=== PATIENT | male | born 1960 | race Caucasian/White ===

== ENCOUNTER → 2019-05-21 00:01 | Outpatient (RCR) | payer SELFPAY | LOC: ONCRAD 05-07 08:20 | PROVIDERS: Visit Provider Specialist | DX: Z51.0 Encounter for antineoplastic radiation therapy (principal); C34.11 Malignant neoplasm of upper lobe, right bronchus or lung; R51 Headache; M54.2 Cervicalgia; M47.812 Spondylosis without myelopathy or radiculopathy, cervical region; J44.9 Chronic obstructive pulmonary disease, unspecified; Z99.81 Dependence on supplemental oxygen; Z79.891 Long term (current) use of opiate analgesic | CPT/HCPCS: 70553; 72040; 77336; 77386 ×8; 78306; A9561; A9579 ==

== ENCOUNTER 2019-06-12 05:39 | Outpatient (RCR) | payer OTHER, SELFPAY ==
--- NOTE | 2019-06-12 11:25 | ONC FU_ITS ---
Dr. Willams follow up note Patient: Brandt Daniels Unit #: [id number]: 1960 Dicatated By: Evi Willams M.D.Date of Visit:Jun 12, 2019 Onc Med Follow-up/Prog Note History of Present Illness: Mr. Brandt Daniels, is a 58-year-old gentleman with history of right lung mass, recently underwent CT-guided biopsy of right upper lobe lung mass and final pathology report showed invasive adenocarcinoma. As per patient he was diagnosed with right upper lobe lung mass for which he was evaluated by Dr. Brewster on 04/26/2018 and because of advanced COPD and poor pulmonary reserve he was not considered a candidate for surgery and was referred to pulmonology for further evaluation and between he was supposed to see cardiothoracic surgeon in [facility] for biopsy and reason unknown to him, eventually on 08/27/[address]-guided biopsy of right upper lobe mass which confirmed the diagnosis of non-small cell lung cancer adenocarcinoma type. And .Molecular profiling of the tumor showed negative for ALK, ROS 1, EGFR, BRAF mutation and PDL [address] PET scan done on 04/21/2018 which showed 2 x 1.8 cm right upper lobe nodule with SUV of 14.1 and a second 9 mm nodule in the lateral right middle lobe has an SUV of 3 consistent with metastatic disease and this. Right hilar node which has SUV of 3. .3, suggestive of metastatic disease Patient has advanced stage COPD, on home oxygen and poor pulmonary reserve, wheelchair-bound History of chronic smoking since age 13, still active CT PET scan done on 09/22/2018 showed the right upper lobe pulmonary nodule has progressed since prior study done on 04/21/2018, now measures 2.7 x 3.2 cm with SUV of 19.7 compared to 2.0 x 1.8 cm with SUV of 14.1 in April 2018 The second nodule previously measured 9 mm in the lateral right middle lobe has SUV of 3 now measures 1.7 cm with SUV of 10.3 A new subcentimeter lesion in the central right middle lobe is FDG positive, indicating new disease. There has been no significant change in the superior right hilar node, still consistent with metastatic disease. MRI scan of the head done on 09/27/2018 showed no evidence of brain metastases but left internal auditory canal enhancing lesion, differential could be acoustic neuroma, meningioma or metastatic disease. Patient being referred to ENT for evaluation Combined chemoradiation therapy was planned initially but after evaluating his scans with Dr. Martinez radiation oncology, there was a concern about pulmonary toxicity with combined chemoradiation so plan was changed to SB RT only to the right upper lobe and right middle lobe lung nodule Which was done on October 10 to 10/18/2018 and October 22 to 10/29/2018 and he was also referred to [place] pulmonology for mediastinal lymph node evaluation/biopsy but visitor information assistant in [place] thought he was a high risk for the procedure so no evaluation was done. At that time radiation decided to do follow-up CT scan of chest which was done on 12/11/2018 and it showed interval decrease in the size of spiculated right upper lobe pulmonary nodule and in the size of spiculated pulmonary nodules in the right middle lobe e.g. good response to SB RT to right upper lobe and right middle lobe pulmonary nodules Stable right hilar FDG avid lymphadenopathy. patient quit smoking for couple of weeks with then start smoking again AGAINST MEDICAL ADVICE. Patient was advised because of his advanced COPD requiring multiple bronchodilator, smoking would be more harmful, patient expressed understanding but still smoking. . Patient went to [facility] for evaluation for clinical trials/second opinion and he was told, no further treatment needed at this time rather observation and follow-up scans in February 2019 .Underwent CT PET scan on 03/09/2019 which showed the right superior hilar node demonstrates progression, now measuring 3.2 x 2.0 with SUV of 13.1, up from 3.4 previously. There is a positive metabolic response in the multiple lung nodules, the right upper lobe nodule that previously measured 2.7 x 3.2 cm with SUV of 19.7, now measures 1.5 cm with SUV of 4.3 The other nodules are now less than 1 cm in size and demonstrate negligible FDG uptake. patient was seen by Dr. Martinez and combined chemoradiation was recommended and planned but after talking to patient's daughter who had concern but pulmonary toxicity due to combined chemoradiation and so other option was to discuss about getting a lymph node biopsy with molecular profiling, patient has transportation problem going to [place], as daughter has no driving license. Finally patient agreed to start treatment with combined chemoradiation so radiation with weekly carboplatin/Taxol was planned but at last minute, patient expressed concern about pulmonary toxicity and reluctant to take chemotherapy but agreed to proceed with radiation alone. Case was discussed with Dr. Martinez and was treated with radiation alone because of concern but pulmonary toxicity from combined chemoradiation in already compromised pulmonary status and patient on home oxygen.Which was started on 03/28/2019 through 05/28/2019 During radiation therapy patient started having headaches and generalized bony pains for which she underwent bone scan on 05/21/2019 which showed no evidence of metastatic disease but degenerative type arthritis involving bilateral first carpometacarpal joints and cervical spondylosis. MRI head was also done on 05/09/2019 which showed no evidence of metastatic disease Came for follow-up., Denies any specific complaint except persistent off-and-on headaches and bilateral shoulder pain back pain, pain in his wrists, not being controlled with Tylenol hydrocodone helps some. Now waiting for pain clinic evaluation in [place]. And requesting pain medicine to to cover till being evaluated in the clinic. Patient has completed radiation therapy to his mediastinal lymph node area. Medications: buPROPion HCl 1 Tablet (of 75 mg) Oral b.i.d., Combivent Respimat Aerosol, solution Inhalation, Gabapentin 3 Capsule (of 300 mg) Oral at bedtime, KlonoPIN 1 (0.5 mg) Tablet Oral t.i.d., Montelukast Sodium 1 Tablet (of 10 mg) Tablet Oral daily, ProAir HFA 1 puff(s) (of 108 (90 base) mcg/act) Aerosol, solution Inhalation PRN, Spiriva Respimat Aerosol, solution Inhalation, Symbicort 2 puff(s) (of 160-4.5 mcg/act) Aerosol Inhalation Allergies: eggs Review of Systems: Constitutional - No fevers, chills, night sweats, excessive fatigue or weight loss, ENMT - No sinus congestion/drainage. No mouth sores. No sore throat or difficulty swallowing, Hematologic/Lymphatic - No abnormal bruising or bleeding, Respiratory - He continues to be short of breath and wears oxygen continuously. He continues to smoke some, Cardiovascular - No anginal chest pain, palpitations or orthopnea, Gastrointestinal - No nausea, vomiting, diarrhea, GI bleeding, or constipation. No change in bowel habits, no heartburn or early satiety, Genitourinary (M) - No hematuria, dysuria, increased frequency, urgency, hesitancy or incontinence, Musculoskeletal - Pt reports significant pain, and states [facility] in [place], Integumentary - No chronic rashes, inflammation, ulcerations or skin changes, Neurologic - No headache or dizziness. Pt reports some numbness and tingling in left hand, Psychiatric - Positive for anxiety. No depression. No insomnia. Vital Signs: Vitals are not available for this patient. Performance Status: 2 - Ambulatory/capable of all self-care, unable to perform any work activities. Up and about more than 50% of waking hours. (ECOG) Physical Examination: ENMT - No oral exudates, ulcers, masses, thrush or mucositis. Oropharynx clear. Tongue normal, Respiratory -poor air entry, mild wheezing bilaterally, Cardiovascular - Regular rate and rhythm of heart, Abdomen - Non-tender, non-distended, Good bowel sounds. No guarding or rebound tenderness. No pulsatile masses, Extremities - no edema. Lab/Imaging: Test performed on Mar 28, 2019 09:02 Sodium 139 mmol/L Potassium 4.2 mmol/L Chloride 100 mmol/L CO2 26 mmol/L Anion Gap 17.2 BUN 15 mg/dL Creatinine 0.6 mg/dL Cr Clearance (Est) 124.5100 mL/min eGFR 137.9 mL/min Glucose 231 mg/dl Calcium 9.8 mg/dL Protein, Total 7.4 g/dL Albumin 5.2 g/dL Globulin 2.2 gm/dL Bilirubin, Total 0.3 mg/dL ALT (SGPT) 9 U/L AST (SGOT) 16 U/L Alkaline Phosphatase 100 U/L WBC 6.0 10 3/uL RBC 4.36 10 6/uL HGB 13.3 g/dL HCT 40.3 % MCV 92.4 fl MCH 30.5 pg MCHC 33.0 g/dl RDW 13.2 % Platelet Count 180 10 3/cmm MPV 10.9 fl Neutrophils 5.7 10 3/uL Lymphocytes 0.2 10 3/uL Monocytes 0.1 10 3/uL Eosinophils 0.0 10 3/uL Basophils 0.0 10 3/uL Neutrophil % 95.1 % Lymphocyte % 3.7 % Monocyte % 1.0 % Eosinophil % 0.0 % Basophils % 0.0 % Impression: Invasive adenocarcinoma of right upper lobe of lung per CT-guided biopsy done on 08/27/2018 Immunohistochemistry showed positive for CKAE1,/AE3, malignant cell stained diffusely and strongly for TTF-1 and showed rare positivity for p63 Negative for synaptophysin and chromogranin. CT PET scan done on 04/21/2018 showed 2 x 1.8 cm right upper lobe nodule with SUV of 14.1 A second 9 mm nodule in the lateral right middle lobe has an SUV of 3.0 consistent with metastatic disease Superior right hilar node has an SUV of 3.3, suggestive of metastatic disease CT PET scan done on 09/22/2018 showed right upper lobe pulmonary nodule has progressed since prior study done in April 2018 now measures 2.7 x 3.2 cm with SUV of 19.7 compared to 2 x 1.8 cm SUV of 14.1 in April 2018 Second nodule previously measured 9 mm in the lateral right middle lobe had an SUV of 3 now measures 1.7 cm with SUV of 10.3 A new subcentimeter lesion in the central right middle lobe is FDG positive, indicating new disease. There has been no significant change in superior right hilar node still consistent with metastatic disease Combined chemoradiation therapy was planned but after reviewing his scans with radiation oncology it was decided risk of permanent toxicity with combined chemoradiation was high thus SB RT only to the right upper lobe and right middle lobe nodule was given. And concern was with mediastinal lymphadenopathy for which she was referred to visitor information assistant in [place] but considering his pulmonary status e.g. advanced stage COPD, he was considered high risk for the procedure so no mediastinal evaluation was done. Rather follow-up was recommended patient underwent follow-up CT scan of chest on 12/11/2018 which showed interval decrease in size of spiculated right upper lobe pulmonary nodule and right middle lobe pulmonary not. Stable right hilar lymphadenopathy. Advanced chronic emphysematous changes MRI scan of the head done on 09/27/2018 showed no evidence of metastatic disease but left internal auditory canal enhancing lesion, differential including acoustic neuroma, meningioma or metastatic disease, now being referred to ENT for evaluation. Advanced stage COPD, on home oxygen Long-standing history of smoking since age 13, still active Plan: Discussed with patient regarding further plan including observation versus systemic chemotherapy with carboplatin/Alimta every 3 weeks ???4 followed by durvalumab every 2 weeks ???12 months or maintenance immunotherapy with durvalumab. Patient has stage IIIB disease e.g. T4 (primary in right upper lobe and nodule in right middle lobe status post SB RT) and mediastinal lymph node involvement N2. Ideally in patient with stage IIIb disease, standard of care is combined chemoradiation followed by maintenance therapy with durvalumab, but patient did not take chemotherapy due to underlying advanced stage pulmonary disease so in his case definitive radiation therapy alone was given and plan was to give him systemic chemotherapy in adjuvant fashion e.g. carboplatin/Alimta every 3 weeks ???4 and followed by maintenance therapy with immunotherapy.All the side effect possible benefits associated with chemotherapy and immunotherapy were discussed in detail further teaching will be done by chemotherapy nurse Patient is declining immunotherapy due to later side effect and toxicity, may consider chemotherapy but wants to discuss with his family and friends and patient was given literature on carboplatin and Alimta and patient return to clinic in 1 week with CBC CMP and at that time if he agreed then will obtain approval from his insurance and plan. Signed By: Evi Willams M.D. <<Signature on File>>
== END 2019-06-21 23:59 | disposition home or self-care (01) ==
LOC: ONCRAD 05:39
PROVIDERS: Visit Provider Internal Medicine Hematology & Oncology
DX: Z51.0 Encounter for antineoplastic radiation therapy (principal); C34.11 Malignant neoplasm of upper lobe, right bronchus or lung; Z45.2 Encounter for adjustment and management of vascular access device; J44.9 Chronic obstructive pulmonary disease, unspecified; C77.1 Secondary and unspecified malignant neoplasm of intrathoracic lymph nodes; F17.210 Nicotine dependence, cigarettes, uncomplicated; M19.042 Primary osteoarthritis, left hand; M19.041 Primary osteoarthritis, right hand; M47.892 Other spondylosis, cervical region; Z99.81 Dependence on supplemental oxygen
CPT/HCPCS: 77014; 77336; 77386; 96523; 99214

== ENCOUNTER 2019-07-04 05:55 | Outpatient (RCR) | payer OTHER, SELFPAY ==
[2019-07-04 09:42] LABS: Basophils % 0.5 %; Eosinophils # 0.1 10^3/uL (0.0-0.8); Eosinophils % 2.1 %; Hematocrit 36.3 % (42.0-52.0); Hemoglobin 12.1 g/dL (11.7-16.6); Lymphocytes # 0.6 10^3/uL (0.8-4.8); Lymphocytes % 9.5 %; Mean Corpuscular HGB Conc 33.3 g/dL (30.0-36.0); Mean Corpuscular Hemoglobin 30.6 pg (28.0-34.0); Mean Corpuscular Volume 91.7 fL (80-94); Mean Platelet Volume 10.1 fL (7.4-10.4); Monocytes # 0.5 10^3/uL (0.2-0.9); Monocytes % 8.7 %; Neutrophils # 4.9 10^3/uL (1.8-7.7); Neutrophils % 78.9 %; Nucleated Red Blood Cells % 0 %; Platelet Count 187 10^3/cmm (130-400); Red Blood Count 3.96 10^6/uL (4.1-5.3); Red Cell Distribution Width 13.2 % (12.1-15.1); White Blood Count 6.2 10^3/uL (4.0-10.0)
[2019-07-04 09:55] LABS: Alanine Aminotransferase 11 U/L (0-41); Albumin Level 4.2 g/dL (3.5-5.2); Alkaline Phosphatase 69 IU/L (40-130); Anion Gap 12.2 (5-19); Aspartate Amino Transferase 12 U/L (0-40); Blood Urea Nitrogen 8 mg/dL (8-23); Calcium 9.5 mg/dL (8.5-10.5); Carbon Dioxide 29 mmol/L (22-29); Chloride 96 mmol/L (98-107); Globulin 2.8 g/dL (1.3-4.6); Glomerular Filtration Rate 169.6 mL/min (90-130); Glucose 144 mg/dL (65-115); Potassium 4.2 mmol/L (3.5-5.1); Sodium 133 mmol/L (136-145); Total Bilirubin 0.3 mg/dL (0.15-1.2)
--- NOTE | 2019-07-04 12:59 | ONC FU_ITS ---
Dr. Willams follow up note Patient: Brandt Daniels Unit #: [id number]: 1960 Dicatated By: Evi Willams M.D.Date of Visit:Jul 04, 2019 Onc Med Follow-up/Prog Note History of Present Illness: Mr. Brandt Daniels, is a 58-year-old gentleman with history of right lung mass, recently underwent CT-guided biopsy of right upper lobe lung mass and final pathology report showed invasive adenocarcinoma. As per patient he was diagnosed with right upper lobe lung mass for which he was evaluated by Dr. Brewster on 04/26/2018 and because of advanced COPD and poor pulmonary reserve he was not considered a candidate for surgery and was referred to pulmonology for further evaluation and between he was supposed to see cardiothoracic surgeon in [facility] for biopsy and reason unknown to him, eventually on 08/27/[address]-guided biopsy of right upper lobe mass which confirmed the diagnosis of non-small cell lung cancer adenocarcinoma type. And .Molecular profiling of the tumor showed negative for ALK, ROS 1, EGFR, BRAF mutation and PDL [address] PET scan done on 04/21/2018 which showed 2 x 1.8 cm right upper lobe nodule with SUV of 14.1 and a second 9 mm nodule in the lateral right middle lobe has an SUV of 3 consistent with metastatic disease and this. Right hilar node which has SUV of 3. .3, suggestive of metastatic disease Patient has advanced stage COPD, on home oxygen and poor pulmonary reserve, wheelchair-bound History of chronic smoking since age 13, still active CT PET scan done on 09/22/2018 showed the right upper lobe pulmonary nodule has progressed since prior study done on 04/21/2018, now measures 2.7 x 3.2 cm with SUV of 19.7 compared to 2.0 x 1.8 cm with SUV of 14.1 in April 2018 The second nodule previously measured 9 mm in the lateral right middle lobe has SUV of 3 now measures 1.7 cm with SUV of 10.3 A new subcentimeter lesion in the central right middle lobe is FDG positive, indicating new disease. There has been no significant change in the superior right hilar node, still consistent with metastatic disease. MRI scan of the head done on 09/27/2018 showed no evidence of brain metastases but left internal auditory canal enhancing lesion, differential could be acoustic neuroma, meningioma or metastatic disease. Patient being referred to ENT for evaluation Combined chemoradiation therapy was planned initially but after evaluating his scans with Dr. Martinez radiation oncology, there was a concern about pulmonary toxicity with combined chemoradiation so plan was changed to SB RT only to the right upper lobe and right middle lobe lung nodule Which was done on October 10 to 10/18/2018 and October 22 to 10/29/2018 and he was also referred to [place] pulmonology for mediastinal lymph node evaluation/biopsy but [facility] in [place] thought he was a high risk for the procedure so no evaluation was done. At that time radiation decided to do follow-up CT scan of chest which was done on 12/11/2018 and it showed interval decrease in the size of spiculated right upper lobe pulmonary nodule and in the size of spiculated pulmonary nodules in the right middle lobe e.g. good response to SB RT to right upper lobe and right middle lobe pulmonary nodules Stable right hilar FDG avid lymphadenopathy. patient quit smoking for couple of weeks with then start smoking again AGAINST MEDICAL ADVICE. Patient was advised because of his advanced COPD requiring multiple bronchodilator, smoking would be more harmful, patient expressed understanding but still smoking. . Patient went to [facility] for evaluation for clinical trials/second opinion and he was told, no further treatment needed at this time rather observation and follow-up scans in February 2019 .Underwent CT PET scan on 03/09/2019 which showed the right superior hilar node demonstrates progression, now measuring 3.2 x 2.0 with SUV of 13.1, up from 3.4 previously. There is a positive metabolic response in the multiple lung nodules, the right upper lobe nodule that previously measured 2.7 x 3.2 cm with SUV of 19.7, now measures 1.5 cm with SUV of 4.3 The other nodules are now less than 1 cm in size and demonstrate negligible FDG uptake. patient was seen by Dr. Martinez and combined chemoradiation was recommended and planned but after talking to patient's daughter who had concern but pulmonary toxicity due to combined chemoradiation and so other option was to discuss about getting a lymph node biopsy with molecular profiling, patient has transportation problem going to [place], as daughter has no driving license. Finally patient agreed to start treatment with combined chemoradiation so radiation with weekly carboplatin/Taxol was planned but at last minute, patient expressed concern about pulmonary toxicity and reluctant to take chemotherapy but agreed to proceed with radiation alone. Case was discussed with Dr. Martinez and was treated with radiation alone because of concern but pulmonary toxicity from combined chemoradiation in already compromised pulmonary status and patient on home oxygen.Which was started on 03/28/2019 through 05/28/2019 During radiation therapy patient started having headaches and generalized bony pains for which she underwent bone scan on 05/21/2019 which showed no evidence of metastatic disease but degenerative type arthritis involving bilateral first carpometacarpal joints and cervical spondylosis. MRI head was also done on 05/09/2019 which showed no evidence of metastatic disease Consolidation/adjuvant chemotherapy was considered after definitive radiation to the lung and also discuss about role of maintenance therapy with immunotherapy, patient did some research and talk to his family and decided against medical advise and would not consider chemotherapy or immunotherapy rather using alternative therapy with herbs . And his chronic pain is being managed by pain clinic. Came for follow-up, denies any specific complaints, no fever or chills, no nausea or vomiting but had episode of shingles involving right upper abdominal and flank area, patient was treated with acyclovir by his PMD, now complaining of mild anxiety as pain clinic is monitoring his medications. Patient said he did some research on net, and talked to his family and has decided not to consider any chemotherapy or immunotherapy knowing the risk versus benefits rather prefer observation as he is taking alternative therapy in form of various herbs. Medications: buPROPion HCl 1 Tablet (of 75 mg) Oral b.i.d., Combivent Respimat Aerosol, solution Inhalation, Gabapentin 3 Capsule (of 300 mg) Oral at bedtime, Montelukast Sodium 1 Tablet (of 10 mg) Tablet Oral daily, ProAir HFA 1 puff(s) (of 108 (90 base) mcg/act) Aerosol, solution Inhalation PRN, Spiriva Respimat Aerosol, solution Inhalation, Symbicort 2 puff(s) (of 160-4.5 mcg/act) Aerosol Inhalation Allergies: eggs Review of Systems: Constitutional - No fevers, chills, night sweats, excessive fatigue or weight loss, ENMT - No sinus congestion/drainage. No mouth sores. No sore throat or difficulty swallowing, Hematologic/Lymphatic - No abnormal bruising or bleeding, Respiratory - He continues to be short of breath and wears oxygen continuously. He continues to smoke some, Cardiovascular - No anginal chest pain, palpitations or orthopnea, Gastrointestinal - No nausea, vomiting, diarrhea, GI bleeding, or constipation. No change in bowel habits, no heartburn or early satiety, Genitourinary (M) - No hematuria, dysuria, increased frequency, urgency, hesitancy or incontinence, Musculoskeletal - Pt reports significant pain, stating that he is currently seeing a pain clinic physician, Integumentary - Pt has shingles on right lower chest/upper abdomen, Neurologic - No headache or dizziness, Psychiatric - Positive for anxiety, Pt states Pain Management D/c'd his anxiety medication. No depression. No insomnia. Vital Signs: Performed on Jul 04, 2019 10:33 Height - 68.00 in Weight - 150.0 lbs (LOW) BSA - 1.81 sq.m BMI - 22.81 Temperature - 97.9 F (LOW) Pulse - 103 /min (HIGH) Respiration - 20 /min BP - 108/69 mm(hg) O2 Sat - 100 % Pain - 10 Performance Status: 2 - Ambulatory/capable of all self-care, unable to perform any work activities. Up and about more than 50% of waking hours. (ECOG) Physical Examination: ENMT - No oral exudates, ulcers, masses, thrush or mucositis. Oropharynx clear. Tongue normal, Respiratory - Lungs are clear to auscultation without rhonchi or wheezing, Cardiovascular - Regular rate and rhythm of heart, Abdomen - Non-tender, non-distended, Good bowel sounds. No guarding or rebound tenderness. No pulsatile masses, Extremities - no edema. Lab/Imaging: Test performed on Mar 28, 2019 09:02 Sodium 139 mmol/L Potassium 4.2 mmol/L Chloride 100 mmol/L CO2 26 mmol/L Anion Gap 17.2 BUN 15 mg/dL Creatinine 0.6 mg/dL Cr Clearance (Est) 124.5100 mL/min eGFR 137.9 mL/min Glucose 231 mg/dl Calcium 9.8 mg/dL Protein, Total 7.4 g/dL Albumin 5.2 g/dL Globulin 2.2 gm/dL Bilirubin, Total 0.3 mg/dL ALT (SGPT) 9 U/L AST (SGOT) 16 U/L Alkaline Phosphatase 100 U/L WBC 6.0 10 3/uL RBC 4.36 10 6/uL HGB 13.3 g/dL HCT 40.3 % MCV 92.4 fl MCH 30.5 pg MCHC 33.0 g/dl RDW 13.2 % Platelet Count 180 10 3/cmm MPV 10.9 fl Neutrophils 5.7 10 3/uL Lymphocytes 0.2 10 3/uL Monocytes 0.1 10 3/uL Eosinophils 0.0 10 3/uL Basophils 0.0 10 3/uL Neutrophil % 95.1 % Lymphocyte % 3.7 % Monocyte % 1.0 % Eosinophil % 0.0 % Basophils % 0.0 % Impression: Invasive adenocarcinoma of right upper lobe of lung per CT-guided biopsy done on 08/27/2018 Immunohistochemistry showed positive for CKAE1,/AE3, malignant cell stained diffusely and strongly for TTF-1 and showed rare positivity for p63 Negative for synaptophysin and chromogranin. CT PET scan done on 04/21/2018 showed 2 x 1.8 cm right upper lobe nodule with SUV of 14.1 A second 9 mm nodule in the lateral right middle lobe has an SUV of 3.0 consistent with metastatic disease Superior right hilar node has an SUV of 3.3, suggestive of metastatic disease CT PET scan done on 09/22/2018 showed right upper lobe pulmonary nodule has progressed since prior study done in April 2018 now measures 2.7 x 3.2 cm with SUV of 19.7 compared to 2 x 1.8 cm SUV of 14.1 in April 2018 Second nodule previously measured 9 mm in the lateral right middle lobe had an SUV of 3 now measures 1.7 cm with SUV of 10.3 A new subcentimeter lesion in the central right middle lobe is FDG positive, indicating new disease. There has been no significant change in superior right hilar node still consistent with metastatic disease Combined chemoradiation therapy was planned but after reviewing his scans with radiation oncology it was decided risk of permanent toxicity with combined chemoradiation was high thus SB RT only to the right upper lobe and right middle lobe nodule was given. And concern was with mediastinal lymphadenopathy for which she was referred to [facility] in [place] but considering his pulmonary status e.g. advanced stage COPD, he was considered high risk for the procedure so no mediastinal evaluation was done. Rather follow-up was recommended patient underwent follow-up CT scan of chest on 12/11/2018 which showed interval decrease in size of spiculated right upper lobe pulmonary nodule and right middle lobe pulmonary not. Stable right hilar lymphadenopathy. Advanced chronic emphysematous changes MRI scan of the head done on 09/27/2018 showed no evidence of metastatic disease but left internal auditory canal enhancing lesion, differential including acoustic neuroma, meningioma or metastatic disease, now being referred to ENT for evaluation. Advanced stage COPD, on home oxygen Long-standing history of smoking since age 13, still active Plan: Discussed with patient regarding his labs white blood count 6.2 hemoglobin 12.1 crit 36.3 platelets 187,000 CMP within normal limits except sodium 133 Clinically, patient is doing well with no signs symptoms suggestive of disease progression. Patient was recommended adjuvant/consolidation therapy followed by immunotherapy as patient was not a candidate for surgery because of poor pulmonary reserve and underwent definitive radiation therapy to the lung for stage IIIB disease. Patient declined therapy rather prefer observation, no new risk versus benefits, patient was offered second opinion or referred to tertiary care center but patient declined. Now using herbs and awaiting for follow-up CT scan of chest ordered by radiation oncology in July 2019. If that shows disease progression then he may consider treatment otherwise prefer observation. We'll continue port maintenance on monthly basis and then return to clinic in 2 months with CBC CMP. Signed By: Evi Willams M.D. <<Signature on File>>
== END 2019-07-20 23:59 | disposition home or self-care (01) ==
LOC: ONCMED 05:55
PROVIDERS: Visit Provider Internal Medicine Hematology & Oncology
DX: C34.11 Malignant neoplasm of upper lobe, right bronchus or lung (principal); C78.02 Secondary malignant neoplasm of left lung; H61.92 Disorder of left external ear, unspecified; J44.9 Chronic obstructive pulmonary disease, unspecified; F17.210 Nicotine dependence, cigarettes, uncomplicated; M19.042 Primary osteoarthritis, left hand; M19.041 Primary osteoarthritis, right hand; M47.892 Other spondylosis, cervical region; G89.29 Other chronic pain; Z79.51 Long term (current) use of inhaled steroids; Z99.81 Dependence on supplemental oxygen; Z99.3 Dependence on wheelchair; Z92.3 Personal history of irradiation
CPT/HCPCS: 36591; 80053; 85025; 99214

== ENCOUNTER 2019-08-01 09:14 | Outpatient (RCR) | payer OTHER, SELFPAY ==
--- NOTE | 2019-08-01 09:20 | CT_ITS ---
WS: [id number] CT CHEST TECHNIQUE: Contrast enhanced CT of the chest with coronal and sagittal reformatted images. CLINICAL INFORMATION: LUNG CANCER COMPARISON: CT chest December 11, 2018. PET/CT March 09, 2019 DLP: 474.[address] scans at [facility] use at least one of these dose optimization techniques: automat ed exposure control; mA and/or kV adjustment per patient size (includes targeted exams where dose is matched to clinical indication); or iterative reconstruction. FINDINGS: Moderate chronic emphysematous changes. Spiculated right upper lobe pulmonary nodule decreased in siz e since the prior chest CT and PET/CT. Today this measures approximately 1.4 x 1.1 cm with increase i n surrounding fibrosis. Previously described spiculated pulmonary nodule in the right middle lobe is also decreased in size a nd only measures approximately 5 mm today with some surrounding fibrosis. Additional tiny subcentimeter nodule right middle lobe laterally is unchanged. Previously described F DG avid right hilar lymph nodes have decreased in size slightly. No new lymphadenopathy. Aortic calcification. Normal caliber thoracic aorta. Proximal main pulmonary arteries are normal. Nor mal endobronchial tree. Adrenal glands are normal. Normal caliber upper abdominal aorta. CT/CT chest w con* [id number] IMPRESSION: 1. Spiculated right upper lobe nodule measuring 1.4 x 1.1 cm has decreased in size since the prior PET/CT and November [address] today measuring 1.4 x 1.1 CM . Interval increase in the surrounding fibrosis consistent with treatment-relat ed changes. 2. Right middle lobe nodule has nearly resolved today only measuring 5 mm. 3. FDG avid right hilar lymphadenopathy has also improved. 4. Tiny right middle lobe noncalcified pulmonary nodule is unchanged. 5. Chronic emphysematous changes.
[2019-08-01] MEDS: iohexol 300 mg/mL 100 mL Btl IV (09:45)
== END 2019-08-20 23:59 | disposition home or self-care (01) ==
LOC: ONCMED 09:14
PROVIDERS: Visit Provider Internal Medicine Hematology & Oncology
DX: C34.11 Malignant neoplasm of upper lobe, right bronchus or lung (principal); C78.02 Secondary malignant neoplasm of left lung; C77.1 Secondary and unspecified malignant neoplasm of intrathoracic lymph nodes
CPT/HCPCS: 71260; 96523

== ENCOUNTER 2019-09-05 07:25 | Outpatient (RCR) | payer OTHER, SELFPAY ==
[2019-09-05 11:09] LABS: Basophils % 0.3 %; Eosinophils # 0.2 10^3/uL (0.0-0.8); Hematocrit 38.3 % (42.0-52.0); Hemoglobin 12.8 g/dL (11.7-16.6); Lymphocytes # 0.7 10^3/uL (0.8-4.8); Lymphocytes % 8.8 %; Mean Corpuscular HGB Conc 33.4 g/dL (30.0-36.0); Mean Corpuscular Hemoglobin 31.2 pg (28.0-34.0); Mean Corpuscular Volume 93.4 fL (80-94); Mean Platelet Volume 10.8 fL (7.4-10.4); Monocytes # 0.7 10^3/uL (0.2-0.9); Monocytes % 9.5 %; Neutrophils # 6.1 10^3/uL (1.8-7.7); Neutrophils % 78.1 %; Nucleated Red Blood Cells % 0 %; Platelet Count 175 10^3/cmm (130-400); Red Cell Distribution Width 13.1 % (12.1-15.1); White Blood Count 7.8 10^3/uL (4.0-10.0)
[2019-09-05 11:36] LABS: Alanine Aminotransferase 10 U/L (0-41); Albumin Level 4.6 g/dL (3.5-5.2); Alkaline Phosphatase 81 IU/L (40-130); Anion Gap 14.3 (5-19); Aspartate Amino Transferase 12 U/L (0-40); Blood Urea Nitrogen 5 mg/dL (8-23); Carbon Dioxide 31 mmol/L (22-29); Chloride 94 mmol/L (98-107); Globulin 2.9 g/dL (1.3-4.6); Glomerular Filtration Rate 219.4 mL/min (90-130); Glucose 111 mg/dL (65-115); Osmolality Calculated 276 mOsm/kg (285-295); Potassium 4.3 mmol/L (3.5-5.1); Sodium 135 mmol/L (136-145); Total Bilirubin 0.4 mg/dL (0.15-1.2); Total Protein 7.5 g/dL (6.6-8.7)
--- NOTE | 2019-09-05 11:57 | ONC FU_ITS ---
Dr. Willams follow up note Patient: Brandt Daniels Unit #: [id number]: 1960 Dicatated By: Evi Willams M.D.Date of Visit:Sep 05, 2019 Onc Med Follow-up/Prog Note History of Present Illness: Mr. Brandt Daniels, is a 59 -year-old gentleman with history of right lung mass, recently underwent CT-guided biopsy of right upper lobe lung mass and final pathology report showed invasive adenocarcinoma. As per patient he was diagnosed with right upper lobe lung mass for which he was evaluated by Dr. Brewster on 04/26/2018 and because of advanced COPD and poor pulmonary reserve he was not considered a candidate for surgery and was referred to pulmonology for further evaluation and between he was supposed to see cardiothoracic surgeon in [facility] for biopsy and reason unknown to him, eventually on 08/27/[address]-guided biopsy of right upper lobe mass which confirmed the diagnosis of non-small cell lung cancer adenocarcinoma type. And .Molecular profiling of the tumor showed negative for ALK, ROS 1, EGFR, BRAF mutation and PDL [address] PET scan done on 04/21/2018 which showed 2 x 1.8 cm right upper lobe nodule with SUV of 14.1 and a second 9 mm nodule in the lateral right middle lobe has an SUV of 3 consistent with metastatic disease and this. Right hilar node which has SUV of 3. .3, suggestive of metastatic disease Patient has advanced stage COPD, on home oxygen and poor pulmonary reserve, wheelchair-bound History of chronic smoking since age 13, still active CT PET scan done on 09/22/2018 showed the right upper lobe pulmonary nodule has progressed since prior study done on 04/21/2018, now measures 2.7 x 3.2 cm with SUV of 19.7 compared to 2.0 x 1.8 cm with SUV of 14.1 in April 2018 The second nodule previously measured 9 mm in the lateral right middle lobe has SUV of 3 now measures 1.7 cm with SUV of 10.3 A new subcentimeter lesion in the central right middle lobe is FDG positive, indicating new disease. There has been no significant change in the superior right hilar node, still consistent with metastatic disease. MRI scan of the head done on 09/27/2018 showed no evidence of brain metastases but left internal auditory canal enhancing lesion, differential could be acoustic neuroma, meningioma or metastatic disease. Patient being referred to ENT for evaluation Combined chemoradiation therapy was planned initially but after evaluating his scans with Dr. Martinez radiation oncology, there was a concern about pulmonary toxicity with combined chemoradiation so plan was changed to SB RT only to the right upper lobe and right middle lobe lung nodule Which was done on October 10 to 10/18/2018 and October 22 to 10/29/2018 and he was also referred to [place] pulmonology for mediastinal lymph node evaluation/biopsy but shop teacher in [place] thought he was a high risk for the procedure so no evaluation was done. At that time radiation decided to do follow-up CT scan of chest which was done on 12/11/2018 and it showed interval decrease in the size of spiculated right upper lobe pulmonary nodule and in the size of spiculated pulmonary nodules in the right middle lobe e.g. good response to SB RT to right upper lobe and right middle lobe pulmonary nodules Stable right hilar FDG avid lymphadenopathy. patient quit smoking for couple of weeks with then start smoking again AGAINST MEDICAL ADVICE. Patient was advised because of his advanced COPD requiring multiple bronchodilator, smoking would be more harmful, patient expressed understanding but still smoking. . Patient went to [facility] for evaluation for clinical trials/second opinion and he was told, no further treatment needed at this time rather observation and follow-up scans in February 2019 .Underwent CT PET scan on 03/09/2019 which showed the right superior hilar node demonstrates progression, now measuring 3.2 x 2.0 with SUV of 13.1, up from 3.4 previously. There is a positive metabolic response in the multiple lung nodules, the right upper lobe nodule that previously measured 2.7 x 3.2 cm with SUV of 19.7, now measures 1.5 cm with SUV of 4.3 The other nodules are now less than 1 cm in size and demonstrate negligible FDG uptake. patient was seen by Dr. Martinez and combined chemoradiation was recommended and planned but after talking to patient's daughter who had concern but pulmonary toxicity due to combined chemoradiation and so other option was to discuss about getting a lymph node biopsy with molecular profiling, patient has transportation problem going to [place], as daughter has no driving license. Finally patient agreed to start treatment with combined chemoradiation so radiation with weekly carboplatin/Taxol was planned but at last minute, patient expressed concern about pulmonary toxicity and reluctant to take chemotherapy but agreed to proceed with radiation alone. Case was discussed with Dr. Martinez and was treated with radiation alone because of concern but pulmonary toxicity from combined chemoradiation in already compromised pulmonary status and patient on home oxygen.Which was started on 03/28/2019 through 05/28/2019 During radiation therapy patient started having headaches and generalized bony pains for which she underwent bone scan on 05/21/2019 which showed no evidence of metastatic disease but degenerative type arthritis involving bilateral first carpometacarpal joints and cervical spondylosis. MRI head was also done on 05/09/2019 which showed no evidence of metastatic disease Consolidation/adjuvant chemotherapy was considered after definitive radiation to the lung and also discuss about role of maintenance therapy with immunotherapy, patient did some research and talk to his family and decided against medical advise and would not consider chemotherapy or immunotherapy rather using alternative therapy with herbs . And his chronic pain is being managed by pain clinic. Follow-up CT scan of chest done on 08/01/2019 showed a spiculated right upper lobe nodule measuring 1.4 x 1.1 cm has decreased in size since prior CT PET scan and now measuring 1.4 x 1.1 cm. Interval increase in surrounding fibrosis consistent with treatment related changes. Right middle lobe nodule has nearly resolved only measured 5 mm FDG avid right hilar lymphadenopathy has also improved. Tiny right middle lobe noncalcified pulmonary nodule is unchanged. Came for follow-up, denies any specific complaints, no fever or chills, no nausea or vomiting no diarrhea constipation, on home oxygen, still smoking. No hemoptysis or hematemesis. And also taking HERBS and alternative treatment for lung cancer. Medications: buPROPion HCl 1 Tablet (of 75 mg) Oral b.i.d., Combivent Respimat Aerosol, solution Inhalation, Gabapentin 3 Capsule (of 300 mg) Oral at bedtime, Montelukast Sodium 1 Tablet (of 10 mg) Tablet Oral daily, ProAir HFA 1 puff(s) (of 108 (90 base) mcg/act) Aerosol, solution Inhalation PRN, Spiriva Respimat Aerosol, solution Inhalation, Symbicort 2 puff(s) (of 160-4.5 mcg/act) Aerosol Inhalation Allergies: eggs Review of Systems: Constitutional - No fevers, chills, night sweats, excessive fatigue or weight loss, ENMT - No sinus congestion/drainage. No mouth sores. No sore throat or difficulty swallowing, Hematologic/Lymphatic - No abnormal bruising or bleeding, Respiratory - He continues to be short of breath and wears oxygen continuously. He continues to smoke some, Cardiovascular - No anginal chest pain, palpitations or orthopnea, Gastrointestinal - No nausea, vomiting, diarrhea, GI bleeding, or constipation. No change in bowel habits, no heartburn or early satiety, Genitourinary (M) - No hematuria, dysuria, increased frequency, urgency, hesitancy or incontinence, Musculoskeletal - Pt reports significant pain, stating that he is currently seeing a pain clinic physician, Integumentary - , Neurologic - No headache or dizziness, Psychiatric - Positive for anxiety (Pt is tearful today). No depression. No insomnia. Vital Signs: Performed on Sep 05, 2019 10:53 Height - 68.00 in Temperature - 98.9 F (HIGH) Pulse - 124 /min (HIGH) Respiration - 22 /min BP - 120/77 mm(hg) O2 Sat - 97 % Pain - 0 Performance Status: 2 - Ambulatory/capable of all self-care, unable to perform any work activities. Up and about more than 50% of waking hours. (ECOG) Physical Examination: ENMT - no mouth sores, Respiratory - Lungs poor air entry with mild wheezing, Cardiovascular - regular rate and rhythm, Abdomen - nontender, bowel sounds present, Extremities - no edema or rash. Lab/Imaging: Test performed on Jul 04, 2019 09:25 Sodium 133 mmol/L Potassium 4.2 mmol/L Chloride 96 mmol/L CO2 29 mmol/L Anion Gap 12.2 BUN 8 mg/dL Creatinine 0.5 mg/dL Cr Clearance (Est) 147.5700 mL/min eGFR 169.6 mL/min Glucose 144 mg/dL Calcium 9.5 mg/dL Protein, Total 7.0 g/dL Albumin 4.2 g/dL Globulin 2.8 g/dL Bilirubin, Total 0.3 mg/dL ALT (SGPT) 11 U/L AST (SGOT) 12 U/L Alkaline Phosphatase 69 IU/L WBC 6.2 10 3/uL RBC 3.96 10 6/uL HGB 12.1 g/dL HCT 36.3 % MCV 91.7 fL MCH 30.6 pg MCHC 33.3 g/dL RDW 13.2 % Platelet Count 187 10 3/cmm MPV 10.1 fL Neutrophils 4.9 10 3/uL Lymphocytes 0.6 10 3/uL Monocytes 0.5 10 3/uL Eosinophils 0.1 10 3/uL Basophils 0.0 10 3/uL Neutrophil % 78.9 % Lymphocyte % 9.5 % Monocyte % 8.7 % Eosinophil % 2.1 % Basophils % 0.5 % Impression: Invasive adenocarcinoma of right upper lobe of lung per CT-guided biopsy done on 08/27/2018 Immunohistochemistry showed positive for CKAE1,/AE3, malignant cell stained diffusely and strongly for TTF-1 and showed rare positivity for p63 Negative for synaptophysin and chromogranin. CT PET scan done on 04/21/2018 showed 2 x 1.8 cm right upper lobe nodule with SUV of 14.1 A second 9 mm nodule in the lateral right middle lobe has an SUV of 3.0 consistent with metastatic disease Superior right hilar node has an SUV of 3.3, suggestive of metastatic disease CT PET scan done on 09/22/2018 showed right upper lobe pulmonary nodule has progressed since prior study done in April 2018 now measures 2.7 x 3.2 cm with SUV of 19.7 compared to 2 x 1.8 cm SUV of 14.1 in April 2018 Second nodule previously measured 9 mm in the lateral right middle lobe had an SUV of 3 now measures 1.7 cm with SUV of 10.3 A new subcentimeter lesion in the central right middle lobe is FDG positive, indicating new disease. There has been no significant change in superior right hilar node still consistent with metastatic disease Combined chemoradiation therapy was planned but after reviewing his scans with radiation oncology it was decided risk of permanent toxicity with combined chemoradiation was high thus SB RT only to the right upper lobe and right middle lobe nodule was given. And concern was with mediastinal lymphadenopathy for which she was referred to shop teacher in [place] but considering his pulmonary status e.g. advanced stage COPD, he was considered high risk for the procedure so no mediastinal evaluation was done. Rather follow-up was recommended patient underwent follow-up CT scan of chest on 12/11/2018 which showed interval decrease in size of spiculated right upper lobe pulmonary nodule and right middle lobe pulmonary not. Stable right hilar lymphadenopathy. Advanced chronic emphysematous changes MRI scan of the head done on 09/27/2018 showed no evidence of metastatic disease but left internal auditory canal enhancing lesion, differential including acoustic neuroma, meningioma or metastatic disease, now being referred to ENT for evaluation. Advanced stage COPD, on home oxygen Long-standing history of smoking since age 13, still active Plan: Discussed with patient regarding his follow-up CT scan of chest done on 08/01/2019 findings which showed further improvement in the right upper lobe nodule when compared to previous CT PET scan and now measure 1.4 x 1.1 cm. Interval increase in the surrounding fibrosis consistent with treatment-related changes. Right middle lobe nodule has nearly resolved now measures 5 mm. And FDG avid right hilar lymphadenopathy has also improved. Tiny right middle lobe noncalcified pulmonary nodule is unchanged Clinically, patient is doing well no new signs symptoms suggestive of disease progression, but patient has advanced stage pulmonary disease, he is on home oxygen. And also trying some herbs and alternative treatment for lung cancer. At this point, considering his underlying severe pulmonary status and patient's preference, we'll continue to observe and he will return to clinic in 3 months with CBC CMP and follow-up CT scan of chest. In the meantime continue monthly port maintenance Signed By: Evi Willams M.D. <<Signature on File>>
== END 2019-09-19 23:59 | disposition home or self-care (01) ==
LOC: ONCMED 07:25
PROVIDERS: Visit Provider Internal Medicine Hematology & Oncology
DX: C34.11 Malignant neoplasm of upper lobe, right bronchus or lung (principal); C77.1 Secondary and unspecified malignant neoplasm of intrathoracic lymph nodes; J44.9 Chronic obstructive pulmonary disease, unspecified; F17.200 Nicotine dependence, unspecified, uncomplicated; J84.10 Pulmonary fibrosis, unspecified; Z45.2 Encounter for adjustment and management of vascular access device; Z99.81 Dependence on supplemental oxygen
CPT/HCPCS: 80053; 85025; 96523; G0463

== ENCOUNTER 2019-10-03 07:27 | Outpatient (RCR) | payer OTHER, SELFPAY | END 2019-10-20 23:59 | disposition home or self-care (01) | LOC: ONCMED 07:27 | PROVIDERS: Visit Provider Internal Medicine Hematology & Oncology | DX: Z45.2 Encounter for adjustment and management of vascular access device (principal); C34.11 Malignant neoplasm of upper lobe, right bronchus or lung; C77.1 Secondary and unspecified malignant neoplasm of intrathoracic lymph nodes; C78.01 Secondary malignant neoplasm of right lung; C78.02 Secondary malignant neoplasm of left lung | CPT/HCPCS: 96523 ==

== ENCOUNTER 2019-11-05 07:07 | Outpatient (RCR) | payer OTHER, SELFPAY | END 2019-11-19 23:59 | disposition home or self-care (01) | LOC: ONCMED 07:07 | PROVIDERS: Visit Provider Internal Medicine Hematology & Oncology | DX: Z45.2 Encounter for adjustment and management of vascular access device (principal); C34.11 Malignant neoplasm of upper lobe, right bronchus or lung; C77.1 Secondary and unspecified malignant neoplasm of intrathoracic lymph nodes; J44.9 Chronic obstructive pulmonary disease, unspecified | CPT/HCPCS: 96523 ==

== ENCOUNTER 2019-12-04 06:43 | Outpatient (RCR) | payer OTHER, SELFPAY ==
--- NOTE | 2019-11-26 09:20 | CT_ITS ---
WS: [id number] CT CHEST TECHNIQUE: Contrast enhanced CT of the chest with coronal and sagittal reformatted images. CLINICAL INFORMATION: LUNG CANCER COMPARISON: CT August 01, 2019 and PET/CT March 09, 2019. CT chest December 11, 2018. DLP: 764.[address] scans at [facility] use at least one of these dose optimization techniques: automat ed exposure control; mA and/or kV adjustment per patient size (includes targeted exams where dose is matched to clinical indication); or iterative reconstruction. FINDINGS: Spiculated right upper lobe pulmonary nodule unchanged since chest CT August 01, 2019. Today this liza ures approximately 1.5 x 1.0 cm with stable surrounding fibrosis. Previously described spiculated pulmonary nodule in the right middle lobe measures approximately 5 mm today with some surrounding fibrosis unchanged. Additional tiny subcentimeter nodule right middle lo be laterally is unchanged. No mediastinal or hilar lymphadenopathy. No axillary lymphadenopathy. Aortic calcification. Normal ca liber thoracic aorta. Proximal main pulmonary arteries are normal. Normal endobronchial tree. Adrenal glands are normal. Normal caliber upper abdominal aorta. CT/CT chest w con* [id number] IMPRESSION: 1. Spiculated right upper lobe nodule measuring 1.5 x 1.0 cm is unchanged 2. Right middle lobe nodule measuring 5 mm is unchanged. 3. No mediastinal or hilar lymphadenopathy. 4. Tiny right middle lobe noncalcified pulmonary nodule is unchanged. 5. Chronic emphysematous changes.
[2019-11-26 10:17] LABS: Blood Urea Nitrogen 6 mg/dL (8-23); Glomerular Filtration Rate 137.4 mL/min (90-130)
[2019-11-26] MEDS: iohexol 300 mg/mL 100 mL Btl IV (10:23)
[2019-12-04 11:56] LABS: Basophils % 0.4 %; Eosinophils # 0.2 10^3/uL (0.0-0.8); Hematocrit 38.1 % (42.0-52.0); Hemoglobin 12.5 g/dL (11.7-16.6); Lymphocytes # 0.9 10^3/uL (0.8-4.8); Lymphocytes % 14.9 %; Mean Corpuscular HGB Conc 32.8 g/dL (30.0-36.0); Mean Corpuscular Hemoglobin 30.3 pg (28.0-34.0); Mean Corpuscular Volume 92.3 fL (80-94); Mean Platelet Volume 10.7 fL (7.4-10.4); Monocytes # 0.6 10^3/uL (0.2-0.9); Monocytes % 9.6 %; Neutrophils # 4.02 10^3/uL (1.8-7.7); Neutrophils % 70.4 %; Nucleated Red Blood Cells % 0 %; Platelet Count 164 10^3/cmm (130-400); Red Blood Count 4.13 10^6/uL (4.1-5.3); Red Cell Distribution Width 13.3 % (12.1-15.1); White Blood Count 5.7 10^3/uL (4.0-10.0)
[2019-12-04 12:09] LABS: Alanine Aminotransferase 13 U/L (0-41); Albumin Level 4.4 g/dL (3.5-5.2); Alkaline Phosphatase 77 IU/L (40-130); Anion Gap 13.1 (5-19); Aspartate Amino Transferase 11 U/L (0-40); Blood Urea Nitrogen 9 mg/dL (8-23); Carbon Dioxide 27 mmol/L (22-29); Chloride 98 mmol/L (98-107); Globulin 2.8 g/dL (1.3-4.6); Glomerular Filtration Rate 219.4 mL/min (90-130); Glucose 96 mg/dL (65-115); Osmolality Calculated 274 mOsm/kg (285-295); Potassium 4.1 mmol/L (3.5-5.1); Sodium 134 mmol/L (136-145); Total Bilirubin 0.5 mg/dL (0.15-1.2); Total Protein 7.2 g/dL (6.6-8.7)
--- NOTE | 2019-12-04 13:47 | ONC FU_ITS ---
Dr. Willams follow up note Patient: Brandt Daniels Unit #: [id number]: [id number] Dicatated By: Evi Willams M.D.Date of Visit:Dec 04, 2019 Onc Med Follow-up/Prog Note History of Present Illness: Mr. Brandt Daniels, is a 59 -year-old gentleman with history of right lung mass, recently underwent CT-guided biopsy of right upper lobe lung mass and final pathology report showed invasive adenocarcinoma. As per patient he was diagnosed with right upper lobe lung mass for which he was evaluated by Dr. Brewster on 04/26/2018 and because of advanced COPD and poor pulmonary reserve he was not considered a candidate for surgery and was referred to pulmonology for further evaluation and between he was supposed to see cardiothoracic surgeon in [facility] for biopsy and reason unknown to him, eventually on 08/27/[address]-guided biopsy of right upper lobe mass which confirmed the diagnosis of non-small cell lung cancer adenocarcinoma type. And .Molecular profiling of the tumor showed negative for ALK, ROS 1, EGFR, BRAF mutation and PDL [address] PET scan done on 04/21/2018 which showed 2 x 1.8 cm right upper lobe nodule with SUV of 14.1 and a second 9 mm nodule in the lateral right middle lobe has an SUV of 3 consistent with metastatic disease and this. Right hilar node which has SUV of 3. .3, suggestive of metastatic disease Patient has advanced stage COPD, on home oxygen and poor pulmonary reserve, wheelchair-bound History of chronic smoking since age 13, still active CT PET scan done on 09/22/2018 showed the right upper lobe pulmonary nodule has progressed since prior study done on 04/21/2018, now measures 2.7 x 3.2 cm with SUV of 19.7 compared to 2.0 x 1.8 cm with SUV of 14.1 in April 2018 The second nodule previously measured 9 mm in the lateral right middle lobe has SUV of 3 now measures 1.7 cm with SUV of 10.3 A new subcentimeter lesion in the central right middle lobe is FDG positive, indicating new disease. There has been no significant change in the superior right hilar node, still consistent with metastatic disease. MRI scan of the head done on 09/27/2018 showed no evidence of brain metastases but left internal auditory canal enhancing lesion, differential could be acoustic neuroma, meningioma or metastatic disease. Patient being referred to ENT for evaluation Combined chemoradiation therapy was planned initially but after evaluating his scans with Dr. Martinez radiation oncology, there was a concern about pulmonary toxicity with combined chemoradiation so plan was changed to SB RT only to the right upper lobe and right middle lobe lung nodule Which was done on October 10 to 10/18/2018 and October 22 to 10/29/2018 and he was also referred to [place] pul[facility] for mediastinal lymph node evaluation/biopsy but luggage attendant in [place] thought he was a high risk for the procedure so no evaluation was done. At that time radiation decided to do follow-up CT scan of chest which was done on 12/11/2018 and it showed interval decrease in the size of spiculated right upper lobe pulmonary nodule and in the size of spiculated pulmonary nodules in the right middle lobe e.g. good response to SB RT to right upper lobe and right middle lobe pulmonary nodules Stable right hilar FDG avid lymphadenopathy. patient quit smoking for couple of weeks with then start smoking again AGAINST MEDICAL ADVICE. Patient was advised because of his advanced COPD requiring multiple bronchodilator, smoking would be more harmful, patient expressed understanding but still smoking. . Patient went to [facility] for evaluation for clinical trials/second opinion and he was told, no further treatment needed at this time rather observation and follow-up scans in February 2019 .Underwent CT PET scan on 03/09/2019 which showed the right superior hilar node demonstrates progression, now measuring 3.2 x 2.0 with SUV of 13.1, up from 3.4 previously. There is a positive metabolic response in the multiple lung nodules, the right upper lobe nodule that previously measured 2.7 x 3.2 cm with SUV of 19.7, now measures 1.5 cm with SUV of 4.3 The other nodules are now less than 1 cm in size and demonstrate negligible FDG uptake. patient was seen by Dr. Martinez and combined chemoradiation was recommended and planned but after talking to patient's daughter who had concern but pulmonary toxicity due to combined chemoradiation and so other option was to discuss about getting a lymph node biopsy with molecular profiling, patient has transportation problem going to [place], as daughter has no driving license. Finally patient agreed to start treatment with combined chemoradiation so radiation with weekly carboplatin/Taxol was planned but at last minute, patient expressed concern about pulmonary toxicity and reluctant to take chemotherapy but agreed to proceed with radiation alone. Case was discussed with Dr. Martinez and was treated with radiation alone because of concern but pulmonary toxicity from combined chemoradiation in already compromised pulmonary status and patient on home oxygen.Which was started on 03/28/2019 through 05/28/2019 During radiation therapy patient started having headaches and generalized bony pains for which she underwent bone scan on 05/21/2019 which showed no evidence of metastatic disease but degenerative type arthritis involving bilateral first carpometacarpal joints and cervical spondylosis. MRI head was also done on 05/09/2019 which showed no evidence of metastatic disease Consolidation/adjuvant chemotherapy was considered after definitive radiation to the lung and also discuss about role of maintenance therapy with immunotherapy, patient did some research and talk to his family and decided against medical advise and would not consider chemotherapy or immunotherapy rather using alternative therapy with herbs . And his chronic pain is being managed by pain clinic. Follow-up CT scan of chest done on 08/01/2019 showed a spiculated right upper lobe nodule measuring 1.4 x 1.1 cm has decreased in size since prior CT PET scan and now measuring 1.4 x 1.1 cm. Interval increase in surrounding fibrosis consistent with treatment related changes. Right middle lobe nodule has nearly resolved only measured 5 mm FDG avid right hilar lymphadenopathy has also improved. Tiny right middle lobe noncalcified pulmonary nodule is unchanged. Follow-up CT scan of chest done on November 26, 2019 showed spiculated right upper lobe nodule measuring 1.5 x 1 cm is unchanged. Patient is status post SBRT to the both lesions Right middle lobe nodule measuring 5 mm unchanged No mediastinal or hilar lymphadenopathy. Tiny right middle lobe noncalcified pulmonary nodule is unchanged Chronic emphysematous changes Came for follow-up, denies any specific complaints, no nausea or vomiting, no fever chills, no diarrhea or constipation, no hemoptysis or hematemesis, appetite is good. No new bony pains. Still smoking about half a pack a day Medications: buPROPion HCl 1 Tablet (of 75 mg) Oral b.i.d., Combivent Respimat Aerosol, solution Inhalation, Gabapentin 3 Capsule (of 300 mg) Oral at bedtime, Montelukast Sodium 1 Tablet (of 10 mg) Tablet Oral daily, ProAir HFA 1 puff(s) (of 108 (90 base) mcg/act) Aerosol, solution Inhalation PRN, Spiriva Respimat Aerosol, solution Inhalation, Symbicort 2 puff(s) (of 160-4.5 mcg/act) Aerosol Inhalation Allergies: eggs Review of Systems: Constitutional - No fevers, chills, night sweats, excessive fatigue or weight loss, ENMT - No sinus congestion/drainage. No mouth sores. No sore throat or difficulty swallowing, Hematologic/Lymphatic - No abnormal bruising or bleeding, Respiratory - He continues to be short of breath and wears oxygen continuously. He continues to smoke. Positive for cough, Cardiovascular - No anginal chest pain, palpitations or orthopnea, Gastrointestinal - No nausea, vomiting, diarrhea, GI bleeding, or constipation. No change in bowel habits, no heartburn or early satiety, Genitourinary (M) - No hematuria, dysuria, increased frequency, urgency, hesitancy or incontinence, Musculoskeletal - Positive for pain, states that he is currently seeing pain clinic, Neurologic - No headache or dizziness, Psychiatric - Positive for anxiety. No depression. No insomnia. Vital Signs: Performed on Dec 04, 2019 13:09 Height - 68.00 in Weight - 136.4 lbs (LOW) BSA - 1.74 sq.m BMI - 20.74 Temperature - 98.1 F (LOW) Pulse - 94 /min Respiration - 26 /min BP - 130/77 mm(hg) O2 Sat - 100 % Pain - 6 Performance Status: 1 - No physically strenuous activity, but ambulatory and able to carry out light or sedentary work (e.g. office work, light house work). (ECOG) Physical Examination: ENMT - No mouth sores, no thrush, no jaundice, Respiratory - Poor air entry, mild wheezing bilaterally, Cardiovascular - Regular rate and rhythm of heart, Abdomen - Soft, bowel sounds present, Extremities - No visible edema. Lab/Imaging: Test performed on Sep 05, 2019 10:37 Sodium 135 mmol/L Potassium 4.3 mmol/L Chloride 94 mmol/L CO2 31 mmol/L Anion Gap 14.3 BUN 5 mg/dL Creatinine 0.4 mg/dL Cr Clearance (Est) 184.4600 mL/min eGFR 219.4 mL/min Glucose 111 mg/dL Calcium 10.0 mg/dL Protein, Total 7.5 g/dL Albumin 4.6 g/dL Globulin 2.9 g/dL Bilirubin, Total 0.4 mg/dL ALT (SGPT) 10 U/L AST (SGOT) 12 U/L Alkaline Phosphatase 81 IU/L WBC 7.8 10 3/uL RBC 4.10 10 6/uL HGB 12.8 g/dL HCT 38.3 % MCV 93.4 fL MCH 31.2 pg MCHC 33.4 g/dL RDW 13.1 % Platelet Count 175 10 3/cmm MPV 10.8 fL Neutrophils 6.1 10 3/uL Lymphocytes 0.7 10 3/uL Monocytes 0.7 10 3/uL Eosinophils 0.2 10 3/uL Basophils 0.0 10 3/uL Neutrophil % 78.1 % Lymphocyte % 8.8 % Monocyte % 9.5 % Eosinophil % 3.0 % Basophils % 0.3 % Impression: Invasive adenocarcinoma of right upper lobe of lung per CT-guided biopsy done on 08/27/2018 Immunohistochemistry showed positive for CKAE1,/AE3, malignant cell stained diffusely and strongly for TTF-1 and showed rare positivity for p63 Negative for synaptophysin and chromogranin. CT PET scan done on 04/21/2018 showed 2 x 1.8 cm right upper lobe nodule with SUV of 14.1 A second 9 mm nodule in the lateral right middle lobe has an SUV of 3.0 consistent with metastatic disease Superior right hilar node has an SUV of 3.3, suggestive of metastatic disease CT PET scan done on 09/22/2018 showed right upper lobe pulmonary nodule has progressed since prior study done in April 2018 now measures 2.7 x 3.2 cm with SUV of 19.7 compared to 2 x 1.8 cm SUV of 14.1 in April 2018 Second nodule previously measured 9 mm in the lateral right middle lobe had an SUV of 3 now measures 1.7 cm with SUV of 10.3 A new subcentimeter lesion in the central right middle lobe is FDG positive, indicating new disease. There has been no significant change in superior right hilar node still consistent with metastatic disease Combined chemoradiation therapy was planned but after reviewing his scans with radiation oncology it was decided risk of permanent toxicity with combined chemoradiation was high thus SB RT only to the right upper lobe and right middle lobe nodule was given. And concern was with mediastinal lymphadenopathy for which she was referred to luggage attendant in [place] but considering his pulmonary status e.g. advanced stage COPD, he was considered high risk for the procedure so no mediastinal evaluation was done. Rather follow-up was recommended patient underwent follow-up CT scan of chest on 12/11/2018 which showed interval decrease in size of spiculated right upper lobe pulmonary nodule and right middle lobe pulmonary not. Stable right hilar lymphadenopathy. Advanced chronic emphysematous changes MRI scan of the head done on 09/27/2018 showed no evidence of metastatic disease but left internal auditory canal enhancing lesion, differential including acoustic neuroma, meningioma or metastatic disease, now being referred to ENT for evaluation. Advanced stage COPD, on home oxygen Long-standing history of smoking since age 13, still active Plan: Discussed with patient regarding his labs white blood count 5.7 hemoglobin 12.5 hematocrit 38.1 platelets 164,000 CMP within normal limit except sodium [address] scan of chest findings which showed no evidence of recurrence of disease Clinically, patient is doing well, with no signs symptom suggestive of recurrence of disease, his follow-up CT scan of chest showed persistent chronic right upper lobe nodule and right middle lobe nodule both are stable and both were treated with SBRT. No evidence of mediastinal or hilar lymphadenopathy. And his tiny right middle lobe noncalcified pulmonary nodule is also unchanged. His lab work-up is also within normal limits except mild hyponatremia Patient was advised to quit smoking, was offered any assistance he may need otherwise he will return to clinic in 4 months with CBC CMP and follow-up CT scan of chest Signed By: Evi Willams M.D. <<Signature on File>>
== END 2019-12-20 23:59 | disposition home or self-care (01) ==
LOC: ONCMED 06:43
PROVIDERS: Family Provider Emergency Medicine Emergency Medical Services; PCP Emergency Medicine Emergency Medical Services; Visit Provider Internal Medicine Hematology & Oncology
DX: Z08 Encounter for follow-up examination after completed treatment for malignant neoplasm (principal); Z85.118 Personal history of other malignant neoplasm of bronchus and lung; F17.210 Nicotine dependence, cigarettes, uncomplicated; J44.9 Chronic obstructive pulmonary disease, unspecified; Z99.81 Dependence on supplemental oxygen; Z92.3 Personal history of irradiation
CPT/HCPCS: 36591; 71260; 80053; 82565; 84520; 85025; G0463; Q9967

== ENCOUNTER 2020-01-06 11:33 | Outpatient (CLI) | payer OTHER, SELFPAY | END 2020-01-06 11:34 | disposition home or self-care (01) | LOC: ONCMED 11:34 | PROVIDERS: PCP Emergency Medicine Emergency Medical Services; Visit Provider Internal Medicine Hematology & Oncology | DX: Z45.2 Encounter for adjustment and management of vascular access device (principal) | CPT/HCPCS: 96523 ==

== ENCOUNTER 2020-02-06 10:59 | Outpatient (CLI) | payer OTHER, SELFPAY | END 2020-02-06 11:00 | disposition home or self-care (01) | LOC: ONCMED 11:01 | PROVIDERS: PCP Emergency Medicine Emergency Medical Services; Visit Provider Internal Medicine Hematology & Oncology | DX: Z45.2 Encounter for adjustment and management of vascular access device (principal) | CPT/HCPCS: 96523 ==

== ENCOUNTER 2020-04-01 10:16 | Outpatient (CLI) | payer OTHER, SELFPAY ==
--- NOTE | 2020-04-01 10:21 | CT_ITS ---
WS: [id number] CT scan of the chest with IV contrast, additional two-dimensional coronal and sagittal reconstruction was performed. 04/01/2020 Clinical Data: LUNG CANCER Comparison: CT chest, 11/26/2019. DLP: 768.[address] scans at [facility] use at least one of these dose optimization techniques: automat ed exposure control; mA and/or kV adjustment per patient size (includes targeted exams where dose is matched to clinical indication); or iterative reconstruction. Findings: The spiculated right upper lobe nodule seen best on image 22 of 73 measures 1.0 x 1.5 cm with adjacen t scarring and it is unchanged. There is a smaller nodule adjacent to the lateral right pleura seen b est on image 37 of 73 that measures 0.5 cm with scarring is also unchanged. Possible right middle lob e nodule seen best on axial image 29 a 73 has not changed and it appears to be connected with a small pulmonary vein. No masses or effusions are seen. The heart size is normal with no pericardial effusion. No pneumonia or pneumothorax is seen. The pulmonary vascularity is not increased. The pulmonary arterial system an d thoracic aorta demonstrate no abnormalities or dilatations. There is no axillary or significant med iastinal adenopathy. No hilar adenopathy is present. There is a small hiatal hernia. The upper abdomen demonstrates no change. There is a nonobstructing central 0.8 cm right renal calcul us. CT/CT chest w con* [id number] Impression: 1. Spiculated right upper lobe nodule unchanged. 2. Small 0.5 cm right middle lobe nodule unchanged.
[2020-04-01 11:11] LABS: Blood Urea Nitrogen 7 mg/dL (8-23); Glomerular Filtration Rate 169.6 mL/min (90-130)
[2020-04-01] MEDS: iohexol 300 mg/mL 100 mL Btl IV (11:19)
== END 2020-04-01 10:17 | disposition home or self-care (01) ==
LOC: RADWPI 10:19
PROVIDERS: PCP Emergency Medicine Emergency Medical Services; Visit Provider Internal Medicine Hematology & Oncology
DX: C34.11 Malignant neoplasm of upper lobe, right bronchus or lung (principal); C77.1 Secondary and unspecified malignant neoplasm of intrathoracic lymph nodes
CPT/HCPCS: 71260; 82565; 84520; Q9967

== ENCOUNTER 2020-05-01 10:16 | Outpatient (CLI) | payer OTHER, SELFPAY ==
[2020-05-01 11:22] LABS: Basophils % 0.5 %; Eosinophils # 0.2 10^3/uL (0.0-0.8); Eosinophils % 2.9 %; Hematocrit 36.7 % (42.0-52.0); Hemoglobin 11.7 g/dL (11.7-16.6); Lymphocytes # 0.6 10^3/uL (0.8-4.8); Lymphocytes % 6.8 %; Mean Corpuscular HGB Conc 31.9 g/dL (30.0-36.0); Mean Corpuscular Hemoglobin 29.8 pg (28.0-34.0); Mean Corpuscular Volume 93.6 fL (80-94); Mean Platelet Volume 10.8 fL (7.4-10.4); Monocytes # 0.6 10^3/uL (0.2-0.9); Monocytes % 7.6 %; Neutrophils # 6.75 10^3/uL (1.8-7.7); Neutrophils % 81.8 %; Nucleated Red Blood Cells % 0 %; Platelet Count 191 10^3/cmm (130-400); Red Blood Count 3.92 10^6/uL (4.1-5.3); Red Cell Distribution Width 13.8 % (12.1-15.1); White Blood Count 8.3 10^3/uL (4.0-10.0)
[2020-05-01 12:04] LABS: Alanine Aminotransferase 10 U/L (0-41); Alkaline Phosphatase 66 IU/L (40-130); Anion Gap 10.8 (5-19); Aspartate Amino Transferase 12 U/L (0-40); Blood Urea Nitrogen 9 mg/dL (8-23); Calcium 9.2 mg/dL (8.5-10.5); Carbon Dioxide 31 mmol/L (22-29); Chloride 98 mmol/L (98-107); Globulin 2.6 g/dL (1.3-4.6); Glomerular Filtration Rate 169.6 mL/min (90-130); Glucose 118 mg/dL (65-115); Osmolality Calculated 282 mOsm/kg (285-295); Potassium 3.8 mmol/L (3.5-5.1); Sodium 136 mmol/L (136-145); Total Bilirubin 0.3 mg/dL (0.15-1.2); Total Protein 6.6 g/dL (6.6-8.7)
== END 2020-05-01 10:17 | disposition home or self-care (01) ==
LOC: ONCMED 10:18
PROVIDERS: PCP Emergency Medicine Emergency Medical Services; Visit Provider Internal Medicine Hematology & Oncology
DX: C34.11 Malignant neoplasm of upper lobe, right bronchus or lung (principal); C77.1 Secondary and unspecified malignant neoplasm of intrathoracic lymph nodes; C78.00 Secondary malignant neoplasm of unspecified lung
CPT/HCPCS: 36591; 80053; 85025

== ENCOUNTER 2020-05-21 05:55 | Outpatient (CLI) | payer OTHER, SELFPAY ==
--- NOTE | 2020-05-21 15:33 | ONC FU_ITS ---
Dr. Willams follow up note Patient: Brandt Daniels Unit #: [id number]: [id number] Dicatated By: Evi Willams M.D.Date of Visit:May 21, 2020 Telehealth Progress Note The patient has been informed that the visit may not be secure and acknowledged the information. I have explained the option of participating in a telephone or video visit during the COVID-19 public health emergency to the patient. After being given an opportunity to ask questions about and discuss this type of visit, the patient verbally consented to proceeding with the telephone/video visit. the patient understands that this service replaces an office visit and they may be billed and /or responsible for any applicable copayments History of Present Illness: Mr. Brandt Daniels, is a 59 -year-old gentleman with history of right lung mass, recently underwent CT-guided biopsy of right upper lobe lung mass and final pathology report showed invasive adenocarcinoma. As per patient he was diagnosed with right upper lobe lung mass for which he was evaluated by Dr. Brewster on 04/26/2018 and because of advanced COPD and poor pulmonary reserve he was not considered a candidate for surgery and was referred to pulmonology for further evaluation and between he was supposed to see cardiothoracic surgeon in [facility] for biopsy and reason unknown to him, eventually on 08/27/[address]-guided biopsy of right upper lobe mass which confirmed the diagnosis of non-small cell lung cancer adenocarcinoma type. And .Molecular profiling of the tumor showed negative for ALK, ROS 1, EGFR, BRAF mutation and PDL [address] PET scan done on 04/21/2018 which showed 2 x 1.8 cm right upper lobe nodule with SUV of 14.1 and a second 9 mm nodule in the lateral right middle lobe has an SUV of 3 consistent with metastatic disease and this. Right hilar node which has SUV of 3. .3, suggestive of metastatic disease Patient has advanced stage COPD, on home oxygen and poor pulmonary reserve, wheelchair-bound History of chronic smoking since age 13, still active CT PET scan done on 09/22/2018 showed the right upper lobe pulmonary nodule has progressed since prior study done on 04/21/2018, now measures 2.7 x 3.2 cm with SUV of 19.7 compared to 2.0 x 1.8 cm with SUV of 14.1 in April 2018 The second nodule previously measured 9 mm in the lateral right middle lobe has SUV of 3 now measures 1.7 cm with SUV of 10.3 A new subcentimeter lesion in the central right middle lobe is FDG positive, indicating new disease. There has been no significant change in the superior right hilar node, still consistent with metastatic disease. MRI scan of the head done on 09/27/2018 showed no evidence of brain metastases but left internal auditory canal enhancing lesion, differential could be acoustic neuroma, meningioma or metastatic disease. Patient being referred to ENT for evaluation Combined chemoradiation therapy was planned initially but after evaluating his scans with Dr. Martinez radiation oncology, there was a concern about pulmonary toxicity with combined chemoradiation so plan was changed to SB RT only to the right upper lobe and right middle lobe lung nodule Which was done on October 10 to 10/18/2018 and October 22 to 10/29/2018 and he was also referred to [place] pulmonology for mediastinal lymph node evaluation/biopsy but electrotyper in [place] thought he was a high risk for the procedure so no evaluation was done. At that time radiation decided to do follow-up CT scan of chest which was done on 12/11/2018 and it showed interval decrease in the size of spiculated right upper lobe pulmonary nodule and in the size of spiculated pulmonary nodules in the right middle lobe e.g. good response to SB RT to right upper lobe and right middle lobe pulmonary nodules Stable right hilar FDG avid lymphadenopathy. patient quit smoking for couple of weeks with then start smoking again AGAINST MEDICAL ADVICE. Patient was advised because of his advanced COPD requiring multiple bronchodilator, smoking would be more harmful, patient expressed understanding but still smoking. . Patient went to [facility] for evaluation for clinical trials/second opinion and he was told, no further treatment needed at this time rather observation and follow-up scans in February 2019 .Underwent CT PET scan on 03/09/2019 which showed the right superior hilar node demonstrates progression, now measuring 3.2 x 2.0 with SUV of 13.1, up from 3.4 previously. There is a positive metabolic response in the multiple lung nodules, the right upper lobe nodule that previously measured 2.7 x 3.2 cm with SUV of 19.7, now measures 1.5 cm with SUV of 4.3 The other nodules are now less than 1 cm in size and demonstrate negligible FDG uptake. patient was seen by Dr. Martinez and combined chemoradiation was recommended and planned but after talking to patient's daughter who had concern but pulmonary toxicity due to combined chemoradiation and so other option was to discuss about getting a lymph node biopsy with molecular profiling, patient has transportation problem going to [place], as daughter has no driving license. Finally patient agreed to start treatment with combined chemoradiation so radiation with weekly carboplatin/Taxol was planned but at last minute, patient expressed concern about pulmonary toxicity and reluctant to take chemotherapy but agreed to proceed with radiation alone. Case was discussed with Dr. Martinez and was treated with radiation alone because of concern but pulmonary toxicity from combined chemoradiation in already compromised pulmonary status and patient on home oxygen.Which was started on 03/28/2019 through 05/28/2019 During radiation therapy patient started having headaches and generalized bony pains for which she underwent bone scan on 05/21/2019 which showed no evidence of metastatic disease but degenerative type arthritis involving bilateral first carpometacarpal joints and cervical spondylosis. MRI head was also done on 05/09/2019 which showed no evidence of metastatic disease Consolidation/adjuvant chemotherapy was considered after definitive radiation to the lung and also discuss about role of maintenance therapy with immunotherapy, patient did some research and talk to his family and decided against medical advise and would not consider chemotherapy or immunotherapy rather using alternative therapy with herbs . And his chronic pain is being managed by pain clinic. Follow-up CT scan of chest done on 08/01/2019 showed a spiculated right upper lobe nodule measuring 1.4 x 1.1 cm has decreased in size since prior CT PET scan and now measuring 1.4 x 1.1 cm. Interval increase in surrounding fibrosis consistent with treatment related changes. Right middle lobe nodule has nearly resolved only measured 5 mm FDG avid right hilar lymphadenopathy has also improved. Tiny right middle lobe noncalcified pulmonary nodule is unchanged. Follow-up CT scan of chest done on November 26, 2019 showed spiculated right upper lobe nodule measuring 1.5 x 1 cm is unchanged. Patient is status post SBRT to the both lesions Right middle lobe nodule measuring 5 mm unchanged No mediastinal or hilar lymphadenopathy. Tiny right middle lobe noncalcified pulmonary nodule is unchanged Chronic emphysematous changes Follow-up CT scan of chest done on April 01, 2020 showed spiculated right upper lobe nodule unchanged and small 0.5 cm right middle lobe nodule unchanged Evaluated by telemedicine, patient denies any specific complaint except anxiety about his scan but under control with lorazepam. Denies any hemoptysis or hematemesis denies any nausea or vomiting denies any fever chills, still smoking about half pack a day and using home oxygen, Denies any headaches blurred vision double vision, denies any new bony pains Medications: buPROPion HCl 1 Tablet (of 75 mg) Oral b.i.d., Combivent Respimat Aerosol, solution Inhalation, Gabapentin 3 Capsule (of 300 mg) Oral at bedtime, Montelukast Sodium 1 Tablet (of 10 mg) Tablet Oral daily, ProAir HFA 1 puff(s) (of 108 (90 base) mcg/act) Aerosol, solution Inhalation PRN, Spiriva Respimat Aerosol, solution Inhalation, Symbicort 2 puff(s) (of 160-4.5 mcg/act) Aerosol Inhalation Allergies: eggs Review of Systems: Review of Systems is not available for this patient. Vital Signs: Vitals are not available for this patient. Performance Status: 1 - No physically strenuous activity, but ambulatory and able to carry out light or sedentary work (e.g. office work, light house work). (ECOG) Physical Examination: ENMT - Patient denies any mouth sores, denies any jaundice or headaches, Respiratory - Patient is complaining of dyspnea on exertion, better on home oxygen, Cardiovascular - Denies any palpitation or tachycardia, Abdomen - Denies any abdominal pain or fullness, Extremities - Denies any lower extremity edema. Lab/Imaging: Test performed on May 01, 2020 10:37 Sodium 136 mmol/L Potassium 3.8 mmol/L Chloride 98 mmol/L CO2 31 mmol/L Anion Gap 10.8 BUN 9 mg/dL Creatinine 0.5 mg/dL Cr Clearance (Est) 147.5700 mL/min eGFR 169.6 mL/min Glucose 118 mg/dL Osmolality - Calculated 282 mOsm/kg Calcium 9.2 mg/dL Protein, Total 6.6 g/dL Albumin 4.0 g/dL Globulin 2.6 g/dL Bilirubin, Total 0.3 mg/dL ALT (SGPT) 10 U/L AST (SGOT) 12 U/L Alkaline Phosphatase 66 IU/L WBC 8.3 10 3/uL RBC 3.92 10 6/uL HGB 11.7 g/dL HCT 36.7 % MCV 93.6 fL MCH 29.8 pg MCHC 31.9 g/dL RDW 13.8 % Platelet Count 191 10 3/cmm MPV 10.8 fL Neutrophils 6.75 10 3/uL Lymphocytes 0.6 10 3/uL Monocytes 0.6 10 3/uL Eosinophils 0.2 10 3/uL Basophils 0.0 10 3/uL Neutrophil % 81.8 % Lymphocyte % 6.8 % Monocyte % 7.6 % Eosinophil % 2.9 % Basophils % 0.5 % NRBC % 0 % Impression: Invasive adenocarcinoma of right upper lobe of lung per CT-guided biopsy done on 08/27/2018 Immunohistochemistry showed positive for CKAE1,/AE3, malignant cell stained diffusely and strongly for TTF-1 and showed rare positivity for p63 Negative for synaptophysin and chromogranin. CT PET scan done on 04/21/2018 showed 2 x 1.8 cm right upper lobe nodule with SUV of 14.1 A second 9 mm nodule in the lateral right middle lobe has an SUV of 3.0 consistent with metastatic disease Superior right hilar node has an SUV of 3.3, suggestive of metastatic disease CT PET scan done on 09/22/2018 showed right upper lobe pulmonary nodule has progressed since prior study done in April 2018 now measures 2.7 x 3.2 cm with SUV of 19.7 compared to 2 x 1.8 cm SUV of 14.1 in April 2018 Second nodule previously measured 9 mm in the lateral right middle lobe had an SUV of 3 now measures 1.7 cm with SUV of 10.3 A new subcentimeter lesion in the central right middle lobe is FDG positive, indicating new disease. There has been no significant change in superior right hilar node still consistent with metastatic disease Combined chemoradiation therapy was planned but after reviewing his scans with radiation oncology it was decided risk of permanent toxicity with combined chemoradiation was high thus SB RT only to the right upper lobe and right middle lobe nodule was given. And concern was with mediastinal lymphadenopathy for which she was referred to electrotyper in [place] but considering his pulmonary status e.g. advanced stage COPD, he was considered high risk for the procedure so no mediastinal evaluation was done. Rather follow-up was recommended patient underwent follow-up CT scan of chest on 12/11/2018 which showed interval decrease in size of spiculated right upper lobe pulmonary nodule and right middle lobe pulmonary not. Stable right hilar lymphadenopathy. Advanced chronic emphysematous changes MRI scan of the head done on 09/27/2018 showed no evidence of metastatic disease but left internal auditory canal enhancing lesion, differential including acoustic neuroma, meningioma or metastatic disease, now being referred to ENT for evaluation. Advanced stage COPD, on home oxygen Long-standing history of smoking since age 13, still active Plan: Discussed with patient via telemed regarding his follow-up CT scan of chest which was done on April 01, 2020 which showed persistent spiculated right upper lobe nodule measured 1 x 1.5 cm and 0.5 cm right middle lobe nodule both are unchanged when compared with previous scan done on November 26, 2019. Patient has no new signs symptom suggestive of recurrence of disease and his follow-up CT scan of chest shows no new lesion and persistent but stable right upper and right middle lobe nodules. Patient was advised to quit smoking and was offered any assistance he may need. And we will repeat his follow-up CT scan of chest in 4 months and consider intervention if there is change in size of the current nodules or new lesion Signed By: Evi Willams M.D. <<Signature on File>>
== END 2020-05-21 05:56 | disposition home or self-care (01) ==
LOC: ONCMED 05:55
PROVIDERS: PCP Emergency Medicine Emergency Medical Services; Visit Provider Internal Medicine Hematology & Oncology
DX: C34.11 Malignant neoplasm of upper lobe, right bronchus or lung (principal); R91.8 Other nonspecific abnormal finding of lung field; F41.9 Anxiety disorder, unspecified; J44.9 Chronic obstructive pulmonary disease, unspecified; F17.200 Nicotine dependence, unspecified, uncomplicated; Z99.81 Dependence on supplemental oxygen